=== PATIENT | male | born 1950 | race African-American/Black ===

== ENCOUNTER 2016-09-10 13:22 | Inpatient (IN) | payer BC ==
[~2016-09-10] VITALS: Ht 167.6 cm; Wt 70.3 kg
[2016-09-10 13:00] VITALS: BP 166/92
[2016-09-10 13:05] VITALS: BP 166/92
[2016-09-10] MEDS ORDERED: ACETAMINOPHEN 325 MG TABLET PO PRN (14:00)
[2016-09-10] MEDS ORDERED: ONDANSETRON PF 4 MG/2 ML VIAL. IV PRN (14:00)
--- NOTE | 2016-09-10 14:00 | NUR ---
PT admitted to ICU bed 6 PT had injury at work and has progressively worsened to the point of not being able to walk. Pt is able to verbalize understanding of orientation to unit. Kita BROOKS
[2016-09-10 14:20] LABS: BASO # 0.1 x10^3/uL (0.0-0.2); BASO % 1 % (0-3); EOS # 0.1 x10^3/uL (0.0-0.7); EOS % 1 % (0-3); HEMATOCRIT 48.3 % (39.0-53.0); HEMOGLOBIN 15.9 g/dL (13.0-17.5); LYMPH # 2.6 x10^3/uL (1.0-4.8); LYMPH % 27 % (24-48); MEAN CORPUSCULAR HEMOGLOBIN 30 pg (25-35); MEAN CORPUSCULAR HGB CONC 33 g/dL (31-37); MEAN CORPUSCULAR VOLUME 92 fL (79-100); MONO # 1.1 x10^3/uL (0.0-1.1); MONO % 12 % (0-9); NEUT # 5.6 x10^3uL (1.8-7.7); NEUT % 60 % (31-73); PLATELET COUNT 209 x10^3/uL (140-400); RED BLOOD COUNT 5.25 x10^6/uL (4.30-5.70); RED CELL DISTRIBUTION WIDTH 14.3 % (11.5-14.5); WHITE BLOOD COUNT 9.4 x10^3/uL (4.0-11.0)
[2016-09-10 14:24] LABS: ALBUMIN 3.3 g/dL (3.4-5.0); ALBUMIN/GLOBULIN RATIO 0.6 (1.0-1.7); CALCIUM 9.6 mg/dL (8.5-10.1); CREATININE 0.8 mg/dL (0.7-1.3); GFR 117.8; MAGNESIUM 1.9 mg/dL (1.8-2.4); POTASSIUM 3.9 mmol/L (3.5-5.1)
[2016-09-10] MEDS ORDERED: GLYB5TAB3 PO (14:29)
[2016-09-10] MEDS ORDERED: OLME1TAB21 PO (14:30)
[2016-09-10] MEDS ORDERED: MULT1TAB6 PO (14:33)
[2016-09-10] MEDS ORDERED: ASCO500T2 PO (14:33)
--- NOTE | 2016-09-10 14:43 | RAD ---
Indication lung malignancy. A single view of the chest was obtained. No prior imaging of the chest is available. The heart and pulmonary vessels appear normal. The mediastinum has a normal appearance. There are occasional small densities in both lungs compatible with granulomas. A dominant mass in the chest is not seen. Acute finding is not apparent. There is no evidence of significant pleural fluid or pneumothorax. The visualized bony structures appear grossly intact. IMPRESSION: No acute or focal process is seen in the chest. No prior images are available for comparison. If additional imaging evaluation of the chest is warranted a CT examination could be performed
[2016-09-10] MEDS ORDERED: POLYETHYLENE GLYCOL 3350 17 GM PACKET. PO SCH (14:45)
[2016-09-10] MEDS ORDERED: IV NORMAL SALINE 1,000ML 1,000 ML IV SCH (14:45)
[2016-09-10] MEDS ORDERED: SORA200T PO ×2 (14:46→14:47)
--- NOTE | 2016-09-10 15:13 | RAD ---
WESLEY, 09/10/2016: History: Constipation, abdominal pain There is mild gaseous distention of a bowel loop in the central abdomen which probably represents a loop of sigmoid colon. There is a moderate amount of stool in other portions of the colon. No small bowel dilatation is evident. There is no evidence of organomegaly. There is a mild lumbar scoliosis. IMPRESSION: Mild gaseous distention of a loop of sigmoid colon probably related to the given history of constipation.
[2016-09-10] MEDS ORDERED: DEXTROSE 50% 25 GM / 50ML DISP.SYRIN. IV PRN (17:15)
[2016-09-10] MEDS ORDERED: INSULIN ASPART 300 UNITS/3 ML INSULN.PEN SQ SCH (17:15)
--- NOTE | 2016-09-10 18:25 | NUR ---
Pt being transferred to [facility]. Report given to RN and EMS called. Waiting on transport. Kita BROOKS
--- NOTE | 2016-09-10 19:27 | NUR ---
Pt transported via ems at this time. Pt stable. Belongings given to EMS and family during transfer.
== END 2016-09-10 19:00 | disposition short-term general hospital (02) | DRG 552 ==
LOC: ICU 13:22
PROVIDERS: ADMIT Family Medicine; ATTEND Family Medicine
DX: M48.07 Spinal stenosis, lumbosacral region (principal); G71.0 Muscular dystrophy; C34.91 Malignant neoplasm of unspecified part of right bronchus or lung; G71.8 Other primary disorders of muscles; I10 Essential (primary) hypertension; E11.9 Type 2 diabetes mellitus without complications; K59.00 Constipation, unspecified
CPT/HCPCS: 36415; 71010; 74000; 80053; 82947; 83605; 83735; 85027; 87040; 87641; J1815; J7030